=== PATIENT | female | born 1990 | race Caucasian/White ===

== ENCOUNTER 2017-12-01 06:23 | Emergency (ER) | payer OTHER ==
[~2017-12-01] VITALS: Ht 160 cm; Wt 113.4 kg
[2017-12-01 06:43] VITALS: BP 139/100; Ht 160 cm; Wt 113.4 kg
== END 2017-12-01 08:12 | disposition home or self-care (01) ==
LOC: ED 06:23
DX: S30.0XXA Contusion of lower back and pelvis, initial encounter (principal); W18.2XXA Fall in (into) shower or empty bathtub, initial encounter; Y93.89 Activity, other specified; Y92.89 Other specified places as the place of occurrence of the external cause; Y99.8 Other external cause status

== ENCOUNTER 2018-07-23 13:24 | Emergency (ER) | payer OTHER ==
[~2018-07-23] VITALS: Ht 160 cm; Wt 101.6 kg
[2018-07-23 13:42] VITALS: Ht 160 cm; Wt 101.6 kg
[2018-07-23 14:21] VITALS: BP 151/94
== END 2018-07-23 14:21 | disposition home or self-care (01) ==
LOC: ED 13:24
DX: T63.441A Toxic effect of venom of bees, accidental (unintentional), initial encounter (principal); Y92.89 Other specified places as the place of occurrence of the external cause
CPT/HCPCS: Q0163